=== PATIENT | male | born 1975 | race Caucasian/White ===

== ENCOUNTER 2022-02-19 04:15 | Day surgery (SDC) | payer OTHER ==
[2022-02-18 10:09] VITALS: BMI 37.1
[2022-02-19] MEDS ORDERED: BUPIVACAINE HCL/PF 0.5% (5MG/ML) 10 ML VIAL IJ ONE (11:19)
[2022-02-19 12:04] VITALS: BP 135/93; PULSE 95; RESP 16; TEMP 97.8
== END 2022-02-19 12:12 | disposition home or self-care (01) ==
LOC: JASU-SURG 04:15
PROVIDERS: ATTEND Pain Medicine Pain Medicine
PROC: BR14YZZ Fluoroscopy of Cervical Facet Joint(s) using Other Contrast (ICD-10-PCS; 2022-02-19)
PROC: 3E0T3BZ Introduction of Anesthetic Agent into Peripheral Nerves and Plexi, Percutaneous Approach (ICD-10-PCS; principal; 2022-02-19 11:00)
DX: M47.812 Spondylosis without myelopathy or radiculopathy, cervical region (principal); I10 Essential (primary) hypertension; E11.9 Type 2 diabetes mellitus without complications; Z79.84 Long term (current) use of oral hypoglycemic drugs
CPT/HCPCS: 76000-TC-FY

== ENCOUNTER 2022-04-02 05:42 | Day surgery (SDC) | payer OTHER ==
[2022-04-01 15:32] VITALS: BMI 37.1
[~2022-04-02 05:42] MED LIST: BUPIVACAINE HCL/PF 0.5% (5MG/ML) 10 ML VIAL IJ ONE
[2022-04-02] MEDS ORDERED: BUPIVACAINE HCL/PF 0.5% (5MG/ML) 10 ML VIAL ONE (07:42)
[2022-04-02] MEDS ORDERED: LIDOCAINE HCL/PF 1% SDV 5ML VIAL ONE (07:42)
[2022-04-02 11:40] VITALS: RESP 18
[2022-04-02] MEDS ORDERED: BUPIVACAINE HCL/PF 0.5% (5MG/ML) 10 ML VIAL IJ ONE (13:45)
[2022-04-02 15:32] VITALS: BP 119/78; PULSE 72; TEMP 98.2
== END 2022-04-02 14:28 | disposition home or self-care (01) ==
LOC: JASU-SURG 05:42
PROVIDERS: ATTEND Pain Medicine Pain Medicine
PROC: 3E0T33Z Introduction of Anti-inflammatory into Peripheral Nerves and Plexi, Percutaneous Approach (ICD-10-PCS; 2022-04-02)
PROC: 3E0T3BZ Introduction of Anesthetic Agent into Peripheral Nerves and Plexi, Percutaneous Approach (ICD-10-PCS; principal; 2022-04-02 12:30)
DX: M47.812 Spondylosis without myelopathy or radiculopathy, cervical region (principal)
CPT/HCPCS: 76000-TC-FY

== ENCOUNTER 2022-10-02 12:03 | Day surgery (SDC) | payer OTHER ==
[2022-10-02 12:33] VITALS: RESP 16; BMI 37.1
[2022-10-02 13:48] VITALS: TEMP 98.6
[2022-10-02 14:08] VITALS: BP 124/82; PULSE 82
== END 2022-10-02 14:25 | disposition home or self-care (01) ==
LOC: FASU-ENDO 12:03
PROVIDERS: ATTEND Internal Medicine Gastroenterology
PROC: 0DB78ZX Excision of Stomach, Pylorus, Via Natural or Artificial Opening Endoscopic, Diagnostic (ICD-10-PCS; 2022-10-02)
PROC: 0DB48ZX Excision of Esophagogastric Junction, Via Natural or Artificial Opening Endoscopic, Diagnostic (ICD-10-PCS; 2022-10-02)
PROC: 0DB98ZX Excision of Duodenum, Via Natural or Artificial Opening Endoscopic, Diagnostic (ICD-10-PCS; principal; 2022-10-02 13:07)
DX: K29.50 Unspecified chronic gastritis without bleeding (principal); K21.9 Gastro-esophageal reflux disease without esophagitis; I10 Essential (primary) hypertension; E11.9 Type 2 diabetes mellitus without complications
CPT/HCPCS: 82962; 88305-TC; 88342-TC

== ENCOUNTER 2022-10-19 01:19 | Inpatient (IN) | payer OTHER ==
[2022-10-19 01:37] VITALS: BMI 39.4
[2022-10-19] MEDS ORDERED: ACETAMINOPHEN 1000 MG/100 ML BAG IVPB ONE (01:53)
[2022-10-19] MEDS ORDERED: SODIUM CHLORIDE 0.9% 500 ML INFUS.BAG IV ONE ×3 (01:53→05:01)
[2022-10-19] MEDS ORDERED: ACETAMINOPHEN INJECTION 100 ML IVPB ONE (02:45)
[2022-10-19 03:04] LABS: BASO % 0.4 % (0-2.0); EOS % 1.6 % (0-4.5); HEMATOCRIT 38.3 % (35.4-49); HEMOGLOBIN 12.7 GM/dL (11.7-16.9); MCH 31.3 pg (25.7-33.7); MCHC 33.1 g/dl (32.0-35.9); MEAN CELL VOLUME 94.5 fl (80-96); MEAN PLT VOLUME 8.9 fl (7.5-11.1); MONO % 9.1 % (3.8-10.2); NEUT % 57.9 % (42.8-82.8); PLATELET COUNT 260 10^3/uL (134-434); RBC 4.05 M/mm3 (4.00-5.60); RDW 13.2 % (11.9-15.9); WHITE BLOOD COUNT 13.4 K/mm3 (4.0-10.0)
[2022-10-19 03:13] LABS: INR 1.03 (0.83-1.09); PROTHROMBIN TIME (PATIENT) 11.9 SEC (9.7-13.0)
[2022-10-19 03:16] LABS: ACTIVATED PTT 30.3 SECONDS (25.2-36.5)
[2022-10-19 03:20] LABS: POTASSIUM 4.9 mmol/L (3.5-5.1)
[2022-10-19 03:23] LABS: BLOOD UREA NITROGEN 36.6 mg/dL (7-18); CALCIUM 9.4 mg/dL (8.5-10.1); MAGNESIUM 1.7 mg/dL (1.8-2.4)
[2022-10-19 03:24] LABS: ALBUMIN 4.1 g/dl (3.4-5.0)
[2022-10-19 03:27] LABS: CREATININE 3.3 mg/dL (0.55-1.3)
[2022-10-19 03:28] LABS: BILIRUBIN,TOTAL 0.6 mg/dL (0.2-1); TOT PROT 7.2 g/dl (6.4-8.2)
[2022-10-19] MEDS ORDERED: MAGNESIUM 1GM/D5W - 1 GM/100 ML IVPB IVPB ONE ×2 (04:22→04:30)
[2022-10-19 05:46] LABS: EPI CELLS 21 /uL (0-25.1); HYALINE CASTS 6 /uL (0-3.1); PH,URINE 5.5 (5.0-8.0); URINE APPEARANCE CLEAR; URINE BACTERIA 4 /uL (0-1359); URINE BILIRUBIN NEGATIVE (NEGATIVE); URINE COLOR YELLOW; URINE GLUCOSE (UA) NEGATIVE (NEGATIVE); URINE KETONE TRACE (NEGATIVE); URINE LEUK ESTERASE NEGATIVE (NEGATIVE); URINE NITRITE NEGATIVE (NEGATIVE); URINE PROTEIN 1+ (NEGATIVE); URINE RBC 13 /uL (0-23.9); URINE UROBILINOGEN 0.2 mg/dL (0.2-1.0); URINE WBC 6 /uL (0-25.8)
[2022-10-19 06:11] LABS: LACTIC ACID 2.6 mmol/L (0.4-2.0)
[2022-10-19] MEDS ORDERED: ERGOCALCIFEROL (VIT D2) 50,000 UNIT (1.25 MG) CAPSULE PO SCH (09:15)
[2022-10-19] MEDS ORDERED: TAMSULOSIN HCL 0.4 MG CAP PO SCH ×2 (10:00→11:30)
[2022-10-19] MEDS: PANTOPRAZOLE 40 MG TABLET PO SCH (11:20)
[2022-10-19] MEDS: SODIUM CHLORIDE 1,000 ML IV SCH (11:20)
[2022-10-19] MEDS: HEPARIN NA (PORCINE) 5,000 UNITS/ML 1ML VIAL SQ SCH ×2 (11:20→22:04)
[2022-10-19] MEDS: GABAPENTIN 400 MG CAPSULE PO SCH ×2 (11:20→17:36)
[2022-10-19] MEDS: INSULIN SLIDING SCALE (NOVOLOG) 1 VIAL SQ SCH ×2 (11:36→17:32)
[2022-10-19] MEDS: TAMSULOSIN HCL 0.4 MG CAP PO SCH (12:32)
[2022-10-20] MEDS: GABAPENTIN 400 MG CAPSULE PO SCH ×2 (01:30→09:19)
[2022-10-20] MEDS: INSULIN SLIDING SCALE (NOVOLOG) 1 VIAL SQ SCH ×2 (06:09→11:15)
[2022-10-20 08:12] LABS: BASO % 0.4 % (0-2.0); EOS % 3.6 % (0-4.5); HEMATOCRIT 37.5 % (35.4-49); HEMOGLOBIN 12.3 GM/dL (11.7-16.9); LYMPH % 43.6 % (8-40); MCH 31.5 pg (25.7-33.7); MCHC 32.8 g/dl (32.0-35.9); MEAN CELL VOLUME 96.1 fl (80-96); MEAN PLT VOLUME 10.3 fl (7.5-11.1); MONO % 7.7 % (3.8-10.2); NEUT % 44.7 % (42.8-82.8); PLATELET COUNT 233 10^3/uL (134-434); RDW 13.5 % (11.9-15.9); WHITE BLOOD COUNT 8.5 K/mm3 (4.0-10.0)
[2022-10-20 08:31] LABS: POTASSIUM 4.6 mmol/L (3.5-5.1)
[2022-10-20 08:34] LABS: BLOOD UREA NITROGEN 19.2 mg/dL (7-18); CALCIUM 8.7 mg/dL (8.5-10.1)
[2022-10-20 08:38] LABS: CREATININE 0.8 mg/dL (0.55-1.3)
[2022-10-20 09:04] VITALS: RESP 18
[2022-10-20] MEDS: SODIUM CHLORIDE 1,000 ML IV SCH (09:17)
[2022-10-20] MEDS: HEPARIN NA (PORCINE) 5,000 UNITS/ML 1ML VIAL SQ SCH (09:18)
[2022-10-20] MEDS: TAMSULOSIN HCL 0.4 MG CAP PO SCH (09:19)
[2022-10-20] MEDS: PANTOPRAZOLE 40 MG TABLET PO SCH (09:19)
[2022-10-20] MEDS ORDERED: LORATADINE 10 MG TABLET PO ONE (10:45)
[2022-10-20 15:11] VITALS: BP 123/74; PULSE 72; TEMP 98.9
== END 2022-10-20 16:21 | disposition home or self-care (01) | DRG 469 ==
LOC: JER 01:19 → JERBED 03:34 → J4W 10:21
PROVIDERS: ADMIT Internal Medicine; ATTEND Student in an Organized Health Care Education/Training Program
DX: N17.9 Acute kidney failure, unspecified (principal); G93.41 Metabolic encephalopathy; R55 Syncope and collapse; I10 Essential (primary) hypertension; E78.5 Hyperlipidemia, unspecified; E11.9 Type 2 diabetes mellitus without complications; E87.20 Acidosis, unspecified; N40.0 Benign prostatic hyperplasia without lower urinary tract symptoms; K21.9 Gastro-esophageal reflux disease without esophagitis; E86.0 Dehydration; E66.9 Obesity, unspecified; Z68.39 Body mass index [BMI] 39.0-39.9, adult
CPT/HCPCS: 36415; 70450-TC; 71045-TC-FY; 76775-TC; 80048; 80053; 81003; 82550; 82553; 82962; 83605; 83735; 84484; 85025; 85610; 85730; 87086; 93005; 93010; 99285-25; J1644

== ENCOUNTER 2023-02-18 04:55 | Day surgery (SDC) | payer OTHER ==
[2023-02-17 12:43] VITALS: BMI 39.4
[~2023-02-18 04:55] MED LIST changes: +DEXAMETHASONE SOD PHOSPHATE 10 MG/1 ML VIAL IVPUSH ONE
[2023-02-18 09:14] VITALS: RESP 18
[2023-02-18] MEDS ORDERED: LIDOCAINE HCL 1% PRESERVATIVE FREE - 30ML VIAL IJ ONE (10:41)
[2023-02-18] MEDS ORDERED: LIDOCAINE HCL/PF 2% SDV 5ML VIAL INF ONE (10:47)
[2023-02-18] MEDS ORDERED: DEXAMETHASONE SOD PHOSPHATE 10 MG/1 ML VIAL IVPUSH ONE (10:52)
[2023-02-18] MEDS ORDERED: BUPIVACAINE HCL/PF 0.5% (5MG/ML) 10 ML VIAL IJ ONE (10:52)
[2023-02-18 12:29] VITALS: BP 113/65; PULSE 81; TEMP 98
[2023-02-18] MEDS ORDERED: ACETAMINOPHEN 500 MG TABLET (FP) PO PRN (15:34)
== END 2023-02-18 12:10 | disposition home or self-care (01) ==
LOC: JASU-SURG 04:55
PROVIDERS: ATTEND Pain Medicine Pain Medicine
PROC: 015B3ZZ Destruction of Lumbar Nerve, Percutaneous Approach (ICD-10-PCS; principal; 2023-02-18 10:30)
DX: M47.812 Spondylosis without myelopathy or radiculopathy, cervical region (principal)
CPT/HCPCS: 76000-TC-FY; J1100

== ENCOUNTER 2023-03-05 11:14 | Day surgery (SDC) | payer OTHER ==
[2023-03-03 09:54] VITALS: BMI 39.4
[2023-03-05 13:23] VITALS: TEMP 97.5
[2023-03-05 13:24] VITALS: RESP 18
[2023-03-05 13:25] VITALS: BP 122/67; PULSE 93
== END 2023-03-05 14:00 | disposition home or self-care (01) ==
LOC: FASU-ENDO 11:14
PROVIDERS: ATTEND Internal Medicine Gastroenterology
PROC: 0DBL8ZX Excision of Transverse Colon, Via Natural or Artificial Opening Endoscopic, Diagnostic (ICD-10-PCS; 2023-03-05)
PROC: 0DBP8ZX Excision of Rectum, Via Natural or Artificial Opening Endoscopic, Diagnostic (ICD-10-PCS; principal; 2023-03-05 12:37)
DX: Z12.11 Encounter for screening for malignant neoplasm of colon (principal); D12.8 Benign neoplasm of rectum; K63.5 Polyp of colon; K64.1 Second degree hemorrhoids; K64.8 Other hemorrhoids
CPT/HCPCS: 82962

== ENCOUNTER 2023-03-25 04:31 | Day surgery (SDC) | payer OTHER ==
[2023-03-21 16:02] VITALS: BMI 39.4
[2023-03-25] MEDS ORDERED: LIDOCAINE HCL/PF 1% SDV 5ML VIAL ONE (07:19)
[2023-03-25] MEDS ORDERED: BUPIVACAINE HCL/PF 0.75% 10 ML VIAL ONE (07:19)
[2023-03-25] MEDS ORDERED: LIDOCAINE HCL 1% PRESERVATIVE FREE - 30ML VIAL IJ ONE (09:49)
[2023-03-25] MEDS ORDERED: DEXAMETHASONE SOD PHOSPHATE 10 MG/1 ML VIAL IM ONE (09:50)
[2023-03-25] MEDS ORDERED: LIDOCAINE HCL/PF 2% SDV 5ML VIAL INF ONE (09:50)
[2023-03-25] MEDS ORDERED: BUPIVACAINE HCL/PF 0.5% (5 MG/ML) 30 ML VIAL IJ ONE (09:51)
[2023-03-25] MEDS ORDERED: ACETAMINOPHEN 500 MG TABLET (FP) PO PRN (10:19)
[2023-03-25 11:05] VITALS: BP 119/89; PULSE 92; RESP 20; TEMP 98.2
== END 2023-03-25 11:00 | disposition home or self-care (01) ==
LOC: JASU-SURG 04:31
PROVIDERS: ATTEND Pain Medicine Pain Medicine
PROC: 01513ZZ Destruction of Cervical Nerve, Percutaneous Approach (ICD-10-PCS; principal; 2023-03-25 10:00)
DX: M47.812 Spondylosis without myelopathy or radiculopathy, cervical region (principal)
CPT/HCPCS: 76000-TC-FY; J1100

== ENCOUNTER 2023-06-06 21:48 | Emergency (ER) | payer OTHER ==
[2023-06-06 21:54] VITALS: BP 149/86; PULSE 96; RESP 18; TEMP 98.1; BMI 37.1
[2023-06-06] MEDS ORDERED: KETOROLAC TROMETHAMINE 30 MG/1 ML VIAL IM ONE (23:07)
[2023-06-06] MEDS ORDERED: KETOROLAC TROMETHAMINE 30 MG/1 ML VIAL ONE (23:20)
== END 2023-06-07 00:57 | disposition home or self-care (01) ==
LOC: JERFT 21:48 → JER 21:48
PROC: 2W3JX1Z Immobilization of Right Finger using Splint (ICD-10-PCS; principal; 2023-06-06)
PROC: 3E0233Z Introduction of Anti-inflammatory into Muscle, Percutaneous Approach (ICD-10-PCS; 2023-06-06)
DX: S62.634A Displaced fracture of distal phalanx of right ring finger, initial encounter for closed fracture (principal); W23.0XXA Caught, crushed, jammed, or pinched between moving objects, initial encounter; Y92.9 Unspecified place or not applicable
CPT/HCPCS: 73130-TC-RT-FY; 99284-25

== ENCOUNTER 2023-07-01 08:58 | Emergency (ER) | payer OTHER ==
[2023-07-01 09:33] VITALS: BP 134/82; PULSE 94; RESP 18; TEMP 98.2; BMI 37.1
[2023-07-01] MEDS ORDERED: LORATADINE 10 MG TABLET ONE (09:46)
[2023-07-01] MEDS: LORATADINE 10 MG TABLET PO ONE (09:48)
== END 2023-07-01 10:21 | disposition home or self-care (01) ==
LOC: FER 08:58
DX: H57.89 Other specified disorders of eye and adnexa (principal); R09.81 Nasal congestion; J30.9 Allergic rhinitis, unspecified; Z20.822 Contact with and (suspected) exposure to COVID-19
CPT/HCPCS: 0241U-QW; 99283-25

== ENCOUNTER 2023-09-16 04:16 | Day surgery (SDC) | payer OTHER ==
[2023-09-12 11:17] VITALS: BMI 37.0
[2023-09-16] MEDS ORDERED: LIDOCAINE HCL/PF 1% SDV 5ML VIAL ONE (07:16)
[2023-09-16 07:46] VITALS: RESP 18
[2023-09-16] MEDS: LIDOCAINE HCL 1% PRESERVATIVE FREE - 30ML VIAL IJ ONE ×3 (08:31)
[2023-09-16 10:14] VITALS: BP 132/74; PULSE 70; TEMP 97.8
[2023-09-16] MEDS ORDERED: ACETAMINOPHEN 500 MG TABLET (FP) PO PRN (13:02)
== END 2023-09-16 09:45 | disposition home or self-care (01) ==
LOC: JASU-SURG 04:16
PROVIDERS: ATTEND Pain Medicine Pain Medicine
PROC: 01HY3MZ Insertion of Neurostimulator Lead into Peripheral Nerve, Percutaneous Approach (ICD-10-PCS; principal; 2023-09-16 08:45)
DX: G89.4 Chronic pain syndrome (principal); M25.511 Pain in right shoulder
CPT/HCPCS: 64555; C1778

== ENCOUNTER 2023-09-30 03:55 | Day surgery (SDC) | payer OTHER ==
[2023-09-29 09:01] VITALS: BMI 36.9
[2023-09-30] MEDS ORDERED: LIDOCAINE HCL/PF 1% SDV 5ML VIAL ONE (07:17)
[2023-09-30] MEDS: LIDOCAINE HCL 1% PRESERVATIVE FREE - 30ML VIAL IJ ONE ×3 (07:58→08:33)
[2023-09-30 09:07] VITALS: BP 123/66; PULSE 89; RESP 18; TEMP 97.8
[2023-09-30] MEDS ORDERED: ACETAMINOPHEN 500 MG TABLET (FP) PO PRN (14:57)
== END 2023-09-30 09:39 | disposition home or self-care (01) ==
LOC: JASU-SURG 03:55
PROVIDERS: ATTEND Pain Medicine Pain Medicine
PROC: 01HY3MZ Insertion of Neurostimulator Lead into Peripheral Nerve, Percutaneous Approach (ICD-10-PCS; principal; 2023-09-30 08:00)
DX: G89.4 Chronic pain syndrome (principal); M25.512 Pain in left shoulder
CPT/HCPCS: 64555; C1778

== ENCOUNTER 2024-02-26 22:06 | Emergency (ER) | payer OTHER ==
[2024-02-26 22:30] VITALS: BP 129/81; PULSE 96; RESP 18; TEMP 98; BMI 33.9
== END 2024-02-27 01:54 | disposition left against medical advice (07) ==
LOC: JER 22:06
DX: M25.532 Pain in left wrist (principal); M25.521 Pain in right elbow; M25.561 Pain in right knee; M25.562 Pain in left knee; M25.571 Pain in right ankle and joints of right foot; M25.572 Pain in left ankle and joints of left foot
CPT/HCPCS: 99283-25